=== PATIENT | male | born 1990 | race Native Hawaiian/Other Pacific Islander ===

== ENCOUNTER 2017-10-27 07:56 | Emergency (ER) | payer SELFPAY ==
[~2017-10-27] VITALS: Ht 193 cm; Wt 89.9 kg
[~2017-10-27 07:56] MED LIST: AMOX875 PO; NAPR550 PO; ZITHTAB6 PO
[2017-10-27 08:01] VITALS: BP 140/69; PULSE 73; RESP 16; TEMP 98; O2SAT 100
[2017-10-27] MEDS ORDERED: KETOROLAC TROMETHAMINE 30 MG/ML (IVP) VIAL IV PUSH ONE (08:15)
[2017-10-27] MEDS ORDERED: SODIUM CHLOR 0.9% 1000 ML INJ 1,000 ML IV ONE (08:15)
--- NOTE | 2017-10-27 08:19 | PD ---
HPI Chief Complaint: Abdominal Pain Time Seen by Provider: 08:06 Travel History International Travel<30 days: No Contact w/Intl Traveler<30days: No Traveled to known affect area: No History of Present Illness HPI This is a 27-year-old male who presents to the emergency department with 2 weeks of right upper quadrant abdominal pain that radiates to the back, intermittent, worse with deep breaths, worse with eating and worse with laying on the right side, radiating down into the scrotal area. He denies any fevers or chills. He denies any vomiting. He has never had pain like this before. His father had a history kidney stones. PFSH Past Medical History Diminished Hearing: No Influenza Vaccination: No ?: Not Past Surgical History Surgical History: No Previous Surgery Oral Surgery: Yes Social History Alcohol Use: No Tobacco Use: No Substance Use: No Allergies-Medications (Allergen,Severity, Reaction): Coded Allergies: No Known Allergies (Verified Adverse Reaction, Unknown, 10/27/17) Reported Meds & Prescriptions Reported Meds & Active Scripts Active No Active Prescriptions or Reported Medications Review of Systems Except as stated in HPI: all other systems reviewed are Neg Physical Exam Narrative GENERAL:Well appearing, no acute distress SKIN: Focused skin assessment warm and dry. HEAD: Atraumatic. Normocephalic. EYES: Pupils equal and round. No injection or drainage. ENT: Moist mucous membranes NECK: Trachea midline. CARDIOVASCULAR: Regular rate and rhythm. No murmur appreciated. RESPIRATORY: Clear to auscultation. Breath sounds equal bilaterally. GASTROINTESTINAL: Abdomen soft, tender to palpation in the right upper quadrant and epigastrium with no rebound or guarding. No bulging inguinal hernia : Right CVA tenderness MUSCULOSKELETAL: No obvious deformities. NEUROLOGICAL: Awake and alert. No obvious cranial nerve deficits. Moving all extremities. PSYCHIATRIC: Appropriate mood and affect; insight and judgment normal. Data Data Last Documented VS Vital Signs Date Time Temp Pulse Resp B/P (MAP) Pulse Ox O2 Delivery O2 Flow Rate FiO2 10/27/17 08:01 98.0 73 16 140/69 (92) 100 Orders Orders Complete Blood Count With Diff (10/27/17 08:15) Comprehensive Metabolic Panel (10/27/17 08:15) ^ Insert Iv (10/27/17 08:15) Urinalysis - C+S If Indicated (10/27/17 08:15) Ct Abd/Pel W/O Iv Contrast (10/27/17 ) Ketorolac Inj (Toradol Inj) (10/27/17 08:15) Sodium Chlor 0.9% 1000 Ml Inj (Ns 1000 M (10/27/17 08:15) Lipase (10/27/17 08:42) Labs Laboratory Tests Test 10/27/17 08:42 10/27/17 09:05 White Blood Count 6.2 TH/MM3 Red Blood Count 5.24 MIL/MM3 Hemoglobin 16.3 GM/DL Hematocrit 48.8 % Mean Corpuscular Volume 93.1 FL Mean Corpuscular Hemoglobin 31.1 PG Mean Corpuscular Hemoglobin Concent 33.4 % Red Cell Distribution Width 12.5 % Platelet Count 237 TH/MM3 Mean Platelet Volume 8.3 FL Neutrophils (%) (Auto) 49.8 % Lymphocytes (%) (Auto) 31.7 % Monocytes (%) (Auto) 12.8 % Eosinophils (%) (Auto) 5.5 % Basophils (%) (Auto) 0.2 % Neutrophils # (Auto) 3.1 TH/MM3 Lymphocytes # (Auto) 2.0 TH/MM3 Monocytes # (Auto) 0.8 TH/MM3 Eosinophils # (Auto) 0.3 TH/MM3 Basophils # (Auto) 0.0 TH/MM3 CBC Comment DIFF FINAL Differential Comment Blood Urea Nitrogen 11 MG/DL Creatinine 1.00 MG/DL Random Glucose 86 MG/DL Total Protein 7.3 GM/DL Albumin 3.7 GM/DL Calcium Level 8.9 MG/DL Alkaline Phosphatase 64 U/L Aspartate Amino Transf (AST/SGOT) 20 U/L Alanine Aminotransferase (ALT/SGPT) 29 U/L Total Bilirubin 1.0 MG/DL Sodium Level 136 MEQ/L Potassium Level 4.3 MEQ/L Chloride Level 104 MEQ/L Carbon Dioxide Level 26.9 MEQ/L Anion Gap 5 MEQ/L Estimat Glomerular Filtration Rate 90 ML/MIN Lipase 128 U/L Urine Collection Type CLEAN CATCH Urine Color YELLOW Urine Turbidity CLEAR Urine pH 6.0 Urine Specific [place] 1.025 Urine Protein NEG mg/dL Urine Glucose (UA) NEG mg/dL Urine Ketones NEG mg/dL Urine Occult Blood NEG Urine Nitrite NEG Urine Bilirubin NEG Urine Leukocyte Esterase NEG Urine RBC 0-3 /hpf Urine Squamous Epithelial Cells 0-5 /hpf Microscopic Urinalysis Comment CULT NOT INDICATED Urine Collection Time 09:05 [facility] Medical Decision Making Medical Screen Exam Complete: Yes Emergency Medical Condition: Yes Interpretation(s) afebrile, no tachycardia, normotensive no leukocytosis electrolytes within normal limits urinalysis negative for infection Last 24 hours Impressions Abdomen/Pelvis CT 10/27/17 0000 Signed Impressions: Service Date/Time: Friday, October 27, 2017 08:28 - CONCLUSION: No acute finding is identified on this noncontrast examination to explain the right abdominal pain. The appendix is normal. Ruddy Rawls MD Differential Diagnosis Nephrolithiasis, cholelithiasis, cholecystitis, pancreatitis, costochondritis, pulmonary embolism Narrative Course This is a 27-year-old male who presents to the emergency department with right- sided abdominal and flank pain that has been going on for 3 weeks. It does appear musculoskeletal but on exam he is tender in the right upper quadrant and in the epigastrium. He was placed on a monitor and an IV was established. Labs were obtained which were reassuring including a normal urinalysis. CT abdomen and pelvis was unremarkable with no evidence of nephrolithiasis or gallstones. I think the patient should be treated with pain control for possible costochondritis but I would avoid anti-inflammatories as he has some epigastric tenderness and this may reflect gastritis or peptic ulcer disease. I advised to follow-up with a clinic licensed practical nurse as an outpatient. He is nontoxic appearing and I do not suspect a surgical etiology of his symptoms at this time. Diagnosis Primary Impression: Abdominal pain Qualified Codes: R10.10 - Upper abdominal pain, unspecified Referrals: Pee Jeffers MD Patient Instructions: General Instructions Additional Instructions: If you develop severe or worsening abdominal pain, fever>100.4, persistent vomiting or inability to eat or drink return to the emergency department immediately. Follow up with your primary care physician in 1-2 days for a check-up. Med/Other Pt SpecificInfo: Prescription(s) given Scripts Ranitidine (Ranitidine) 150 Mg Tab 150 MG PO BID for Heartburn Management, #60 TAB 0 Refills Prov: Andree Miller MD 10/27/17 Disposition: 01 DISCHARGE HOME Condition: Stable Andree Miller MD Oct 27, 2017 08:19
--- NOTE | 2017-10-27 08:42 | RADRPT ---
EXAM DATE/TIME: 10/27/2017 08:28 [facility] COMPARISON: No previous studies available for comparison. INDICATIONS : Right abdominal pain x 2 weeks. ORAL CONTRAST: No oral contrast ingested. RADIATION DOSE: 9.67 CTDIvol (mGy) MEDICAL HISTORY : None SURGICAL HISTORY : None. ENCOUNTER: Initial ACUITY: 2 weeks PAIN SCALE: 7/10 LOCATION: Right abdomen TECHNIQUE: Volumetric scanning of the abdomen and pelvis was performed. Using automated exposure control and ad justment of the mA and/or kV according to patient size, radiation dose was kept as low as reasonably achievable to obtain optimal diagnostic quality images. DICOM format image data is available electro nically for review and comparison. FINDINGS: LOWER LUNGS: The visualized lower lungs are clear. LIVER: Homogeneous density without lesion. There is no dilation of the biliary tree. No calcified gallston es. SPLEEN: Normal size without lesion. PANCREAS: Within normal limits. KIDNEYS: Normal in size and shape. There is no mass, stone, or hydronephrosis. ADRENAL GLANDS: Within normal limits. VASCULAR: There is no aortic aneurysm. BOWEL/MESENTERY: The stomach, small bowel, and colon demonstrate no acute abnormality. There is no free intraperitone al air or fluid. The appendix is normal. Terminal ileum is normal. ABDOMINAL WALL: Within normal limits. RETROPERITONEUM: There is no lymphadenopathy. BLADDER: No wall thickening or mass. REPRODUCTIVE: Within normal limits. INGUINAL: There is no lymphadenopathy or hernia. MUSCULOSKELETAL: Within normal limits for patient age. There are incidental bone islands in the sacrum and left proxim al femur. CONCLUSION: No acute finding is identified on this noncontrast examination to explain the right abdominal pain. T he appendix is normal. Ruddy Rawls MD on October 27, 2017 at 8:34 Board Certified Radiologist. This report was verified electronically.
[2017-10-27 08:47] LABS: AUTOMATED NEUTROPHIL # 3.1 TH/MM3 (1.8-7.7); BASOPHIL % 0.2 % (0.0-2.0); EOSINOPHIL # 0.3 TH/MM3 (0-0.4); EOSINOPHIL % 5.5 % (0.0-4.0); HEMATOCRIT 48.8 % (39.0-51.0); HEMOGLOBIN 16.3 GM/DL (13.0-17.0); LYMPH % 31.7 % (9.0-44.0); MEAN CELL VOLUME 93.1 FL (80.0-100.0); MEAN CORPUSCULAR HEMOGLOBIN 31.1 PG (27.0-34.0); MEAN CORPUSCULAR HGB CONC 33.4 % (32.0-36.0); MEAN PLATELET VOLUME 8.3 FL (7.0-11.0); MONO % 12.8 % (0.0-8.0); MONOCYTE # 0.8 TH/MM3 (0-0.9); NEUT % 49.8 % (16.0-70.0); PLATELET COUNT 237 TH/MM3 (150-450); RED BLOOD COUNT 5.24 MIL/MM3 (4.50-5.90); RED CELL DISTRIBUTION WIDTH 12.5 % (11.6-17.2); WHITE BLOOD COUNT 6.2 TH/MM3 (4.0-11.0)
[2017-10-27 08:54] LABS: CHLORIDE 104 MEQ/L (98-107); SODIUM (NA) 136 MEQ/L (136-145)
[2017-10-27 08:57] LABS: ALBUMIN 3.7 GM/DL (3.4-5.0); BICARBONATE 26.9 MEQ/L (21.0-32.0); CALCIUM 8.9 MG/DL (8.5-10.1); GLUCOSE,RANDOM 86 MG/DL (74-106); LIPASE 128 U/L (73-393)
[2017-10-27 08:58] LABS: BLOOD UREA NITROGEN 11 MG/DL (7-18)
[2017-10-27 09:00] LABS: ALT (GPT) 29 U/L (12-78); AST (GOT) 20 U/L (15-37); GLOMERULAR FILTRATION RATE 90 ML/MIN (>89)
[2017-10-27 09:02] LABS: TOTAL PROTEIN 7.3 GM/DL (6.4-8.2)
[2017-10-27 09:03] LABS: ALKALINE PHOSPHATASE 64 U/L (45-117)
[2017-10-27 09:09] LABS: BILIRUBIN, URINE NEG (NEG); BLOOD, URINE NEG (NEG); GLUCOSE,URINE NEG (NEG); KETONE, URINE NEG (NEG); NITRITE,URINE NEG (NEG); URINE LEUKOCYTE ESTERASE NEG (NEG)
[2017-10-27 09:17] LABS: URINE COLOR YELLOW (YELLW/STRAW)
[2017-10-27 09:18] LABS: RBC, URINE 0-3 /hpf (0-3); SQUAMOUS EPITHELIAL CELL URINE 0-5 /hpf (0-5)
[2017-10-27] MEDS ORDERED: RANI150T PO (09:39)
[2017-10-27 09:47] VITALS: RESP 18
== END 2017-10-27 09:52 | disposition home or self-care (01) ==
LOC: PHED 07:56
DX: R10.10 Upper abdominal pain, unspecified (principal)
CPT/HCPCS: 74176; 80053; 81001; 83690; 85025; 96361; 96374; 99284; J1885; J7030